=== PATIENT | male | born 1985 | race Caucasian/White ===

== ENCOUNTER 2021-06-04 15:13 | Emergency (ER) | payer OTHER, MEDICAID ==
[~2021-06-04] VITALS: Ht 182.9 cm; Wt 106.6 kg
[2021-06-04 15:20] VITALS: BP_SYST 161
[2021-06-04] MEDS ORDERED: KETOROLAC TROMETHAMINE 60 MG/2 ML VIAL IM ONE (15:45)
[2021-06-04 17:29] VITALS: BP_SYST 158
== END 2021-06-04 17:29 | disposition home or self-care (01) ==
LOC: SED 15:13
DX: R07.89 Other chest pain (principal); M54.9 Dorsalgia, unspecified; E11.9 Type 2 diabetes mellitus without complications; V49.49XA Driver injured in collision with other motor vehicles in traffic accident, initial encounter; Y93.89 Activity, other specified; Y92.411 Interstate highway as the place of occurrence of the external cause; Y99.8 Other external cause status
CPT/HCPCS: 71045; 96372; 99283; J1885